=== PATIENT | female | born 1995 | race African-American/Black ===

== ENCOUNTER 2017-04-20 22:33 | Inpatient (IN) | payer MEDICAID, OTHER ==
[~2017-04-20] VITALS: Ht 157.5 cm; Wt 45.4 kg
[2017-04-20] MEDS ORDERED: Famotidine 20 MG/ 2ML VIAL IVP ONE (22:45)
[2017-04-20] MEDS ORDERED: Solu-MEDROL 125mg Inj IVP ONE (22:45)
[2017-04-20] MEDS ORDERED: DuoNeb 0.5-3(2.5)mg/3ml neb HHN ONE (22:45)
[2017-04-21] VITALS (8 sets, daily range): BP systolic 95–108; BP diastolic 50–68
[2017-04-21 00:01] LABS: KETONES,URINE NEGATIVE (NEGATIVE); NITRITE,URINE NEGATIVE (NEGATIVE); PH,URINE 6.5 (4.5-8.0); PROTEIN,URINE 1+ (NEGATIVE); UROBILINOGEN,URINE 1 MG/DL (0.0-1.0)
[2017-04-21 00:09] LABS: APPEARANCE,URINE SLIGHTLY CLOUDY; LEUKOCYTE ESTERASE ,URINE 2+ (NEGATIVE)
[2017-04-21 00:10] LABS: AMORPHOUS SEDIMENT,UR MODERATE /LPF; BACTERIA,URINE FEW /HPF; SQUAMOUS EPITHELIAL CELL,UR MANY /LPF (NONE/OCC)
[2017-04-21 00:15] LABS: ALANINE AMINOTRANSFERASE 5 U/L (3-33); ALBUMIN/GLOBULIN RATIO 1.7 (1.0-2.7); ANION GAP 12 (5-15); ASPARTATE AMINO TRANSFERASE 12 U/L (5-40); CALCIUM 9.1 mg/dL (8.6-10.2); CARBON DIOXIDE 23 mEQ/L (20-30); CHLORIDE 103 mEQ/L (98-107); CREATININE 0.7 mg/dL (0.5-0.9); GLOMERULAR FILTRATION RATE > 60 mL/min (>60); HEMOLYSIS 8; POTASSIUM 3.3 mEQ/L (3.4-4.9); SODIUM 138 mEQ/L (135-145); TOTAL PROTEIN 6.4 g/dL (6.6-8.7)
[2017-04-21 00:40] LABS: BASOPHILS % (AUTO) 0.8 % (0.0-2.0); EOSINOPHILS % (AUTO) 3.7 % (0.0-3.0); LYMPHOCYTES % (AUTO) 21.4 % (20.0-45.0); MEAN CORPUSCULAR HEMOGLOBIN 31.3 PG (27.0-31.0); MEAN CORPUSCULAR HGB CONC 34.8 G/DL (32.0-36.0); MEAN CORPUSCULAR VOLUME 90 FL (80-99); MEAN PLATELET VOLUME 6.5 FL (6.5-10.1); MONOCYTES % (AUTO) 4.7 % (1.0-10.0); NEUTROPHILS % (AUTO) 69.4 % (45.0-75.0); PLATELET COUNT 231 K/UL (150-450); RED CELL DISTRIBUTION WIDTH 11.4 % (11.6-14.8); WHITE BLOOD COUNT 5.6 K/UL (4.8-10.8)
--- NOTE | 2017-04-21 04:37 | Emergency Room Report ---
History of Present Illness General Chief Complaint: Allergic Reaction Source: Patient Present Illness HPI 22-year-old female presents to ED status post allergic reaction. Patient states she has multiple food and drug allergies. States she ate pizza which had cheese on it. Patient states he immediately felt tightness in her throat and difficulty breathing. EMS gave patient epinephrine and Benadryl. Patient states she feels overall better but still feels tightness in her throat. States she feels short of breath. Denies any rash. Denies any fevers or chills. No other aggravating relieving factors. Denies any other associated symptoms Allergies: Coded Allergies: Dairy (Verified Allergy, Unknown, 04/20/17) Dust (Verified Allergy, Unknown, 04/20/17) IBUPROFEN (Verified Allergy, Unknown, 04/20/17) PEAS (Verified Allergy, Unknown, 04/20/17) Uncoded Allergies: PEANUTS (Allergy, Unknown, 04/20/17) POLLEN (Allergy, Unknown, 04/20/17) Patient History Past Medical History: asthma Past Surgical History: none Pertinent Family History: none Social History: Denies: alcohol use, drug use, smoking Last Menstrual Period: last month Now: No Immunizations: UTD Reviewed Nursing Documentation: PMH: Agreed, PSxH: Agreed Nursing Documentation-PMH Hx Cardiac Problems: No Hx Hypertension: No Hx Pacemaker: No Hx Asthma: Yes Hx COPD: No Hx Diabetes: No Hx Cancer: No Hx Gastrointestinal Problems: Yes - hernia-unknown type Hx Dialysis: No History Of Psychiatric Problem: No Hx Neurological Problems: No Hx Cerebrovascular Accident: No Hx Seizures: No Review of Systems All Other Systems: negative except mentioned in HPI Physical Exam Vital Signs Date Time Temp Pulse Resp B/P Pulse Ox O2 Delivery O2 Flow Rate FiO2 04/20/17 22:26 98.6 110 16 112/72 99 Room Air Sp02 EP Interpretation: reviewed, normal General Appearance: no apparent distress, alert, GCS 15, non-toxic Head: normocephalic, atraumatic Eyes: bilateral eye PERRL, bilateral eye normal inspection ENT: hearing grossly normal, normal pharynx, no angioedema, normal voice Neck: full range of motion, supple/symm/no masses, other - no stridor Respiratory: chest non-tender, normal breath sounds, speaking full sentences, wheezing Cardiovascular #1: regular rate, rhythm, no edema Cardiovascular #2: 2+ carotid (R), 2+ carotid (L), 2+ radial (R), 2+ radial (L) , 2+ dorsalis pedis (R), 2+ dorsalis pedis (L) Gastrointestinal: normal bowel sounds, non tender, soft, non-distended, no guarding, no rebound Rectal: deferred Genitourinary: normal inspection, no CVA tenderness Musculoskeletal: back normal, gait/station normal, normal range of motion, non- tender Neurologic: alert, oriented x3, responsive, motor strength/tone normal, sensory intact, speech normal Psychiatric: judgement/insight normal, memory normal, mood/affect normal, no suicidal/homicidal ideation Reflexes: 3+ bicep (R), 3+ bicep (L), 3+ tricep (R), 3+ tricep (L), 3+ knee (R) , 3+ knee (L) Skin: normal color, no rash, warm/dry, well hydrated Lymphatic: no adenopathy Medical Decision Making Diagnostic Impression: Primary Impression: Allergic reaction Qualified Codes: T78.40XA - Allergy, unspecified, initial encounter ER Course Hospital Course 22-year-old female presents ED complaining of throat tightness shortness of breath after eating cheese Differential diagnoses include: allergic reaction, angioedema, anaphylaxis Clinical course Patient placed on stretcher. adobe maker. After initial history and physical, I ordered Solu-Medrol, IVFS, pepcid, patient already received Epi and Benadryl in the field. Given nebulizer treatment Labs reviewed - electrolytes okay, no leukocytosis, hemoglobin/hematocrit okay EKG-normal sinus rhythm no acute changes interpreted by me Patient states she overall feels better but continues to feel tightness in her throat. There is no tongue swelling. No stridor. Patient be admitted to Dr. Darin johnson. I feel this is a highly complex case requiring extensive working including EKG/Rhythm strip, Xray/CT/US, Blood/urine lab work, repeat exams while in ED, and administration of strong opiates/narcotics for pain control, admission to hospital or close patient follow up. Diagnosis - allergic reaction Admitted to telemetry in serious condition Labs Test 04/20/17 23:28 04/21/17 00:20 Urine Color Pale yellow Urine Appearance Slightly cloudy Urine pH 6.5 (4.5-8.0) Urine Specific [place] 1.020 (1.005-1.035) Urine Protein 1+ (NEGATIVE) Urine Glucose (UA) Negative (NEGATIVE) Urine Ketones Negative (NEGATIVE) Urine Occult Blood 2+ (NEGATIVE) Urine Nitrite Negative (NEGATIVE) Urine Bilirubin Negative (NEGATIVE) Urine Urobilinogen 1 MG/DL (0.0-1.0) Urine Leukocyte Esterase 2+ (NEGATIVE) Urine RBC 5-10 /HPF (0 - 2) Urine WBC 5-10 /HPF (0 - 2) Urine Squamous Epithelial Cells Many /LPF (NONE/OCC) Urine Amorphous Sediment Moderate /LPF (NONE) Urine Bacteria Few /HPF (NONE) Urine HCG, Qualitative Negative Sodium Level 138 mEQ/L (135-145) Potassium Level 3.3 mEQ/L (3.4-4.9) Chloride Level 103 mEQ/L (98-107) Carbon Dioxide Level 23 mEQ/L (20-30) Anion Gap 12 (5-15) Blood Urea Nitrogen 20 mg/dL (7-23) Creatinine 0.7 mg/dL (0.5-0.9) Estimat Glomerular Filtration Rate > 60 mL/min (>60) Glucose Level 121 mg/dL (74-106) Calcium Level 9.1 mg/dL (8.6-10.2) Total Bilirubin 0.4 mg/dL (0.0-1.2) Aspartate Amino Transf (AST/SGOT) 12 U/L (5-40) Alanine Aminotransferase (ALT/SGPT) 5 U/L (3-33) Alkaline Phosphatase 45 U/L (35-104) Total Protein 6.4 g/dL (6.6-8.7) Albumin 4.1 g/dL (3.5-5.2) Globulin 2.3 g/dL Albumin/Globulin Ratio 1.7 (1.0-2.7) White Blood Count 5.6 K/UL (4.8-10.8) Red Blood Count 3.90 M/UL (4.20-5.40) Hemoglobin 12.2 G/DL (12.0-16.0) Hematocrit 35.1 % (37.0-47.0) Mean Corpuscular Volume 90 FL (80-99) Mean Corpuscular Hemoglobin 31.3 PG (27.0-31.0) Mean Corpuscular Hemoglobin Concent 34.8 G/DL (32.0-36.0) Red Cell Distribution Width 11.4 % (11.6-14.8) Platelet Count 231 K/UL (150-450) Mean Platelet Volume 6.5 FL (6.5-10.1) Neutrophils (%) (Auto) 69.4 % (45.0-75.0) Lymphocytes (%) (Auto) 21.4 % (20.0-45.0) Monocytes (%) (Auto) 4.7 % (1.0-10.0) Eosinophils (%) (Auto) 3.7 % (0.0-3.0) Basophils (%) (Auto) 0.8 % (0.0-2.0) EKG Diagnostic Results Rate: normal Rhythm: NSR ST Segments: no acute changes ASA given to the pt in ED: No Rhythm Strip Diag. Results EP Interpretation: yes Rhythm: NSR, no PVC's, no ectopy Last Vital Signs Date Time Temp Pulse Resp B/P Pulse Ox O2 Delivery O2 Flow Rate FiO2 04/21/17 03:23 98.0 94 18 96/61 99 Room Air Status: improved Disposition: ADMITTED INPATIENT Condition: Serious Referrals: [facility],REFERRING (PCP) SAGRARIO HUTSON M.D. Apr 21, 2017 04:37
[2017-04-21] MEDS ORDERED: Mylanta II UD 30ml ORAL PRN (08:30)
[2017-04-21] MEDS ORDERED: DiphenhydrAMINE 50mg/ml Inj IVP PRN (08:30)
[2017-04-21] MEDS ORDERED: LORazepam Inj 2mg/ml 1ml IV PRN (08:30)
[2017-04-21] MEDS ORDERED: Morphine Sulfate 2mg/ml Inj IVP PRN (08:45)
[2017-04-21] MEDS: Solu-MEDROL 125mg Inj IV SCH ×2 (08:56→12:58)
--- NOTE | 2017-04-21 13:38 | History and Physical ---
History of Present Illness General Date patient seen: Apr 21, 2017 Reason for Hospitalization: Allergic Reaction Present Illness HPI 22-year-old female presents to ED status post allergic reaction. She ate pizza which had cheese on it. Patient states he immediately felt tightness in her throat and difficulty breathing. EMS gave patient epinephrine and Benadryl. Patient states she feels overall better but still feels tightness in her throat. States she feels short of breath. Denies any rash. Denies any fevers or chills. No other aggravating relieving factors. Denies any other associated symptoms Allergies: Coded Allergies: Dairy (Verified Allergy, Unknown, 04/20/17) Dust (Verified Allergy, Unknown, 04/20/17) IBUPROFEN (Verified Allergy, Unknown, 04/20/17) PEAS (Verified Allergy, Unknown, 04/20/17) Uncoded Allergies: PEANUTS (Allergy, Unknown, 04/20/17) POLLEN (Allergy, Unknown, 04/20/17) Patient History Healthcare decision maker Resuscitation status Full Code Advanced Directive on File No Review of Systems All Other Systems: negative except mentioned in HPI Physical Exam General Appearance: WD/WN Lines, tubes and drains: peripheral HEENT: normocephalic, atraumatic Neck: non-tender, normal alignment Respiratory/Chest: chest wall non-tender, lungs clear Breasts: no masses Cardiovascular/Chest: normal peripheral pulses Abdomen: normal bowel sounds, non tender Genitourinary/Rectal: normal genital exam Skin Exam: normal pigmentation Last 24 Hour Vital Signs Date Time Temp Pulse Resp B/P Pulse Ox O2 Delivery O2 Flow Rate FiO2 04/21/17 11:18 98.1 74 18 105/59 100 Room Air 04/21/17 07:41 98.2 84 18 95/50 100 Room Air 04/21/17 05:20 96/60 04/21/17 04:57 97.7 89 19 108/52 98 Room Air 04/21/17 03:23 98.0 94 18 96/61 99 Room Air 04/21/17 02:30 98.0 80 99/62 100 Room Air 04/21/17 01:00 98.0 66 18 108/63 99 Room Air 04/21/17 00:15 97.5 96 18 103/68 100 Room Air 04/20/17 22:57 81 18 100 Room Air 04/20/17 22:57 96 18 100 Room Air 04/20/17 22:56 85 18 Room Air 04/20/17 22:26 98.6 110 16 112/72 99 Room Air Intake and Output 04/20/17 04/21/17 18:59 06:59 Intake Total 0 ml Balance 0 ml Intake Oral 0 ml Laboratory Tests Test 04/20/17 23:28 04/21/17 00:20 Urine Color Pale yellow Urine Appearance Slightly cloudy Urine pH 6.5 (4.5-8.0) Urine Specific [place] 1.020 (1.005-1.035) Urine Protein 1+ (NEGATIVE) H Urine Glucose (UA) Negative (NEGATIVE) Urine Ketones Negative (NEGATIVE) Urine Occult Blood 2+ (NEGATIVE) H Urine Nitrite Negative (NEGATIVE) Urine Bilirubin Negative (NEGATIVE) Urine Urobilinogen 1 MG/DL (0.0-1.0) H Urine Leukocyte Esterase 2+ (NEGATIVE) H Urine RBC 5-10 /HPF (0 - 2) H Urine WBC 5-10 /HPF (0 - 2) H Urine Squamous Epithelial Cells Many /LPF (NONE/OCC) H Urine Amorphous Sediment Moderate /LPF (NONE) H Urine Bacteria Few /HPF (NONE) Urine HCG, Qualitative Negative Sodium Level 138 mEQ/L (135-145) Potassium Level 3.3 mEQ/L (3.4-4.9) L Chloride Level 103 mEQ/L (98-107) Carbon Dioxide Level 23 mEQ/L (20-30) Anion Gap 12 (5-15) Blood Urea Nitrogen 20 mg/dL (7-23) Creatinine 0.7 mg/dL (0.5-0.9) Estimat Glomerular Filtration Rate > 60 mL/min (>60) Glucose Level 121 mg/dL (74-106) H Calcium Level 9.1 mg/dL (8.6-10.2) Total Bilirubin 0.4 mg/dL (0.0-1.2) Aspartate Amino Transf (AST/SGOT) 12 U/L (5-40) Alanine Aminotransferase (ALT/SGPT) 5 U/L (3-33) Alkaline Phosphatase 45 U/L (35-104) Total Protein 6.4 g/dL (6.6-8.7) L Albumin 4.1 g/dL (3.5-5.2) Globulin 2.3 g/dL Albumin/Globulin Ratio 1.7 (1.0-2.7) White Blood Count 5.6 K/UL (4.8-10.8) Red Blood Count 3.90 M/UL (4.20-5.40) L Hemoglobin 12.2 G/DL (12.0-16.0) Hematocrit 35.1 % (37.0-47.0) L Mean Corpuscular Volume 90 FL (80-99) Mean Corpuscular Hemoglobin 31.3 PG (27.0-31.0) H Mean Corpuscular Hemoglobin Concent 34.8 G/DL (32.0-36.0) Red Cell Distribution Width 11.4 % (11.6-14.8) L Platelet Count 231 K/UL (150-450) Mean Platelet Volume 6.5 FL (6.5-10.1) Neutrophils (%) (Auto) 69.4 % (45.0-75.0) Lymphocytes (%) (Auto) 21.4 % (20.0-45.0) Monocytes (%) (Auto) 4.7 % (1.0-10.0) Eosinophils (%) (Auto) 3.7 % (0.0-3.0) H Basophils (%) (Auto) 0.8 % (0.0-2.0) Height (Feet): 5 Height (Inches): 2.00 Weight (Pounds): 100 Medications Current Medications Medications (Trade) Dose Ordered Sig/Dai Route PRN Reason Start Time Stop Time Status Last Admin Dose Admin Acetaminophen (Tylenol) 650 mg Q4H PRN ORAL fever>100.5 04/21/17 09:30 05/21/17 09:29 Al Hydroxide/Mg Hydroxide (Mylanta II) 30 ml Q6H PRN ORAL dyspepsia 04/21/17 08:30 05/21/17 08:29 Dextrose (Dextrose 50%) STAT PRN IV Hypoglycemia 04/21/17 08:30 05/21/17 08:29 Diphenhydramine HCl (Benadryl) 25 mg Q6H PRN IVP Itching 04/21/17 08:30 05/21/17 08:29 Lorazepam (Ativan 2mg/ml 1ml) 0.5 mg Q4H PRN IV For Anxiety 04/21/17 08:30 04/28/17 08:29 Methylprednisolone Sodium Succinate (Solu-MEDROL) 60 mg EVERY 6 HOURS IV 04/21/17 08:30 05/21/17 08:29 04/21/17 12:58 Morphine Sulfate (Morphine Sulfate) 1 mg Q4H PRN IVP For Pain 04/21/17 08:45 04/28/17 08:44 04/21/17 13:00 Ondansetron HCl (Zofran) 4 mg Q6H PRN IVP Nausea & Vomiting 04/21/17 08:30 05/21/17 08:29 Polyethylene Glycol (Miralax) 17 gm HSPRN PRN ORAL Constipation 04/21/17 21:00 05/21/17 20:59 Sodium Chloride (Sodium Chloride 1000ml bag) 1,000 ml @ 100 mls/hr Q10H IV 04/21/17 03:30 05/21/17 03:29 04/21/17 05:11 Zolpidem Tartrate (Ambien) 5 mg HSPRN PRN ORAL Insomnia 04/21/17 21:00 05/21/17 20:59 Assessment/Plan Problem List: (1) Anaphylactic reaction ICD Codes: T78.2XXA - Anaphylactic shock, unspecified, initial encounter SNOMED: 31947226 (2) Allergic reaction ICD Codes: T78.40XA - Allergy, unspecified, initial encounter SNOMED: 406924357 Qualifiers: Qualified Codes: T78.40XA - Allergy, unspecified, initial encounter Status: doing well Assessment/Plan IV steroids benadry symptomatic treatment BEAU SINGH Apr 21, 2017 13:38
[2017-04-21] MEDS ORDERED: Zolpidem 5mg tab ORAL PRN (21:00)
[2017-04-21] MEDS ORDERED: Miralax 17gm pkt ORAL PRN (21:00)
--- NOTE | 2017-04-22 07:47 | Diagnostic Imaging Report ---
APPROVED REPORT CPT Code: 98625 Present Symptoms Comments: Pain BILATERAL: Imaging reveals a patent deep venous system bilaterally. There is no evidence of thrombus within the femoral, popliteal or tibial segments. The greater saphenous veins are also within normal limits. Doppler indicates normal spontaneous flow within these segments.
--- NOTE | 2017-04-23 09:45 | Cardiology Report ---
APPROVED REPORT EKG Measurement Heart [id number] CT [id number] Normal sinus rhythm Prolonged QT Abnormal ECG
--- NOTE | 2017-04-23 17:31 | Discharge Summary ---
Discharge Summary Hospital Course Date of Admission Apr 21, 2017 at 02:57 Date of Discharge Apr 21, 2017 at 16:30 Admitting Diagnosis allergic reaction HPI Stefanie Cheng is a 22 year old female who was admitted on Apr 21, 2017 at 02: 57 for Allergic Reaction Hospital Course [id number] Discharge Discharge Disposition Patient was discharged to Home (01) Discharge Diagnoses: Alexandra Briggs NP Apr 23, 2017 17:31
--- NOTE | 2017-04-23 22:01 | Discharge Summary 2 SIG ---
DATE OF ADMISSION: 04/21/2017 DATE OF DISCHARGE: 04/21/2017 BRIEF HOSPITAL COURSE: The patient is a 22-year-old female, who presented to ED status post allergic reaction. She ate pizza, which had cheese and immediately felt tightness in her throat with difficulty breathing. She was given epinephrine and Benadryl by EMS. She felt better, however, still felt tightness in her throat. She presented to ED and was given nebulizer treatment. Labs showed normal electrolytes with no leukocytosis. EKG showed normal sinus rhythm. There was no tongue swelling. No stridor noted. Due to anaphylactic reaction and allergic reaction, the patient was admitted to telemetry and was given symptomatic treatment. She was given IV Solu-Medrol and Benadryl IV push and was started on IV hydration. Symptoms improved and the patient was eventually discharged home. FINAL DIAGNOSES: 1. Anaphylactic reaction. 2. Allergic reaction. Xavier Webster M.D. I have been assigned to dictate discharge summary on this account and I was not involved in the patient's management. Alexandra Briggs N.P. DR: Aida JOB#: [id number] CC:
== END 2017-04-21 16:30 | disposition home or self-care (01) | DRG 811 ==
LOC: EDBD 22:33 → EMR 22:46 → 2E 04-21 02:57 → EDBEDREQ 04-21 03:32
DX: T78.07XA Anaphylactic reaction due to milk and dairy products, initial encounter (principal); Z88.6 Allergy status to analgesic agent; Z91.011 Allergy to milk products; Z91.010 Allergy to peanuts
CPT/HCPCS: 36415; 80053; 81003; 81025; 85025; 93005; 93970; 94640; 94664; J7620